=== PATIENT | female | born 1950 | race Caucasian/White ===

== ENCOUNTER 2019-04-12 12:49 | Inpatient (IN) | payer MEDICARE, OTHER ==
[~2019-04-12] VITALS: Ht 165.1 cm; Wt 229.0 kg
[2019-04-12] MEDS ORDERED: ASPirin 81 mg TAB PO ONE (13:30)
[2019-04-12 13:53] LABS: Basophils # (auto) 0.1 10 ^3/uL (0-0.2); Eosinophils # (auto) 0.1 10 ^3/uL (0-0.8); Lymphocytes # (auto) 1.1 10 ^3/uL (0.4-5.4)
[2019-04-12 13:58] LABS: Basophils % (auto) 1.1 % (0.0-2.0); Eosinophils % (auto) 1.7 % (0.0-7.0); Hematocrit 33.2 % (36.0-46.0); Lymphocytes % (auto) 12.6 % (10.0-50.0); Mean Corpuscular Volume 73.3 fL (80.0-100.0); Monocytes # (auto) 0.5 10 ^3/uL (0-1.3); Monocytes % (auto) 6.4 % (0.0-12.0); Neutrophils # (auto) 6.5 10 ^3/uL (1.6-8.6); Neutrophils % (auto) 78.2 % (37.0-80.0); Platelet Count (auto) 308 10^3/uL (140-450); Red Blood Cells 4.53 10^6/uL (4.0-5.20); Red Cell Distribution Width 17.4 % (11.8-14.3); White Blood Cell 8.4 10^3/uL (4.4-10.8)
[2019-04-12 14:12] LABS: Albumin 2.9 g/dL (3.4-5.0); Calcium 8.8 mg/dL (8.5-10.1); Magnesium 2.5 mg/dL (1.6-2.6); Potassium 3.8 mmol/L (3.5-5.1)
[2019-04-12 14:17] LABS: Bilirubin, Total 0.8 mg/dL (0.2-1.0)
[2019-04-12] MEDS ORDERED: PROMETHAZINE HCL 25 MG/ML 1ML IV PRN (16:30)
[2019-04-12] MEDS ORDERED: MORPHINE SULF INJ 2 MG/ML SYRINGE 1ML IV PRN (16:30)
[2019-04-12] MEDS ORDERED: LACTULOSE 20Gm/30ML SOLN PO PRN (16:30)
[2019-04-12] MEDS ORDERED: NITROGLYCERIN 0.4 MG SL TAB SL PRN (16:30)
[2019-04-12] MEDS ORDERED: TEMAZEPAM 15 MG CAP PO PRN (16:30)
[2019-04-12] MEDS ORDERED: DEXTROSE (50%) 50ML SYRG IV PRN (16:30)
[2019-04-12] MEDS ORDERED: traMADol HCL 50 MG TAB PO PRN (16:30)
[2019-04-12] MEDS ORDERED: ACETAMINOPHEN 500 MG TAB PO PRN (16:30)
--- NOTE | 2019-04-12 16:42 | NUR ---
WOUND CARE NOTE: [facility] BARIATRIC AIR BED ORDERED AT THIS TIME WITH TRAPEZE AND TURN ASSIST. PATIENT TO BE PLACED, PENDING DELIVERY BY CECILIA RAMIREZ.
[2019-04-12] MEDS: InsuLIN REG 1unit/0.01ml Soln (100units/ml) SC SCH ×2 (17:36→22:00)
[2019-04-12] MEDS: ACCU-CHEK COMFORT CURVE STRIP VI SCH ×2 (17:37→22:00)
[2019-04-12 17:49] LABS: Urine Bacteria FEW /hpf (None Seen); Urine Blood 2+ /uL (Negative); Urine Mucus FEW (None Seen); Urine Specific Gravity 1.021 (1.001-1.035); Urine WBC 317 /hpf (0 - 5); Urine WBC Clumps PRESENT /hpf (None Seen)
[2019-04-12 18:09] LABS: CRP High Sensitivity 3.88 mg/dL (< 0.3)
[2019-04-12] MEDS: CARVEDILOL 3.125 MG TAB PO SCH (18:12)
--- NOTE | 2019-04-12 18:32 | NUR ---
Telemetry admit from ER JUAN MANUEL FREITAS admitted to Telemetry unit after SBAR received. Patient oriented to COLE [place]AR[place], primary RN, unit, room, bed, and unit policies regarding patient care and visiting hours. Patient now on continuous telemetry monitoring, tele box # 40 and telemetry reading on arrival to unit is . Patient placed on bedside oxygen, weighed by bed scale and encouraged to call if they need something. All questions and concerns addressed, patient verbalized understanding.
--- NOTE | 2019-04-12 18:33 | NUR ---
Unable to do physical assessment due to her weight , awaiting for a bariatric bed.
[2019-04-12 18:36] VITALS: BP 185/75
[2019-04-12 18:38] LABS: Amphetamine Screen, Urine NEGATIVE (NEGATIVE); Barbiturate Scree,Urine NEGATIVE (NEGATIVE); Benzodiazephine Screen, Urine NEGATIVE (NEGATIVE); Cannabinoid Screen, Urine NEGATIVE (NEGATIVE); Cocaine Screen, Urine NEGATIVE (NEGATIVE); Opiate Scree,Urine NEGATIVE (NEGATIVE); Phencyclidine Screen, Urine NEGATIVE (NEGATIVE)
--- NOTE | 2019-04-12 18:49 | NUR ---
Dr. Mukherjee paged regarding patient's BP 185/75 HR 80, awaiting to call back.
--- NOTE | 2019-04-12 18:50 | NUR ---
Received a call from Dr. Mukherjee with new orders, noted and carried it out.
[2019-04-12] MEDS ORDERED: hydrALAZINE HCL 20 MG/ML VL IV PRN (19:00)
[2019-04-12 20:00] VITALS: BP 117/57
--- NOTE | 2019-04-12 20:00 | NUR ---
Opening Shift Note Assumed care of patient, awake and alert. Patient complains of generalized pain. Pain more profound to lower extremities. Sherry signs sales representative on sight for Big Bed delivery. Patient transferred to bed without incident. Instructed on POC and to call for assist PRN, will continue to monitor for changes Q1hr and PRN. Caregiver at bedside.
[2019-04-12] MEDS: MORPHINE SULF INJ 2 MG/ML SYRINGE 1ML IV PRN (20:12)
[2019-04-12 21:36] VITALS: BP 117/57
[2019-04-12] MEDS: SODIUM CHLOR 0.9% PF (SALINE LOCK) 10ML VIAL/SYR IV SCH (22:00)
[2019-04-12] MEDS ORDERED: FLUO40CA PO (22:55)
[2019-04-12] MEDS ORDERED: LEVO25TA6 PO (22:55)
[2019-04-12] MEDS ORDERED: GLIP5TAB12 PO (22:55)
[2019-04-12] MEDS ORDERED: INSLANTI SC (22:55)
[2019-04-12] MEDS: CLINDAMYCIN 600MG IV 50 ML IV SCH (22:57)
[2019-04-12] MEDS: ISOSORBIDE DINITRATE 10 MG TAB PO SCH (22:59)
[2019-04-12] MEDS: ATORVASTATIN 20 MG TAB PO SCH (23:00)
[2019-04-12] MEDS: FAMOTIDINE 20 MG TAB PO SCH (23:00)
[2019-04-13] VITALS (7 sets, daily range): BP systolic 110–131; BP diastolic 58–73
--- NOTE | 2019-04-13 01:00 | NUR ---
Patient awake and insisting on getting out of the bed. She was noted to be agitated, yelling and making efforts to get out of bed. At one point, patient threaten to leave hospital against medical advice due to difficulties finding comfort in the bed. Patient assisted in bed to a comfortable position. Caregiver remains at bedside.
--- NOTE | 2019-04-13 01:20 | NUR ---
20 gauge IV to right upper arm noted to be reddened and swollen. IV DC'd with cannula intact. New IV started to left forearm with 20 Gauge after second attempt
[2019-04-13] MEDS: CLINDAMYCIN 600MG IV 50 ML IV SCH ×3 (05:56→22:24)
[2019-04-13] MEDS: ISOSORBIDE DINITRATE 10 MG TAB PO SCH ×3 (06:00→22:27)
[2019-04-13] MEDS: InsuLIN REG 1unit/0.01ml Soln (100units/ml) SC SCH ×4 (06:03→22:29)
[2019-04-13] MEDS: ACCU-CHEK COMFORT CURVE STRIP VI SCH ×4 (06:11→22:32)
[2019-04-13] MEDS: SODIUM CHLOR 0.9% PF (SALINE LOCK) 10ML VIAL/SYR IV SCH ×3 (06:11→22:31)
[2019-04-13 06:12] LABS: Cholesterol 164 mg/dL (< 200); HDL Cholesterol 43 mg/dL (40-59); LDL Cholesterol 109 mg/dL (< 100); Triglycerides 87 mg/dL (< 150)
--- NOTE | 2019-04-13 06:32 | NUR ---
Patient resting comfortably. No distress noted. Caregiver remains at bedside.
--- NOTE | 2019-04-13 07:00 | NUR ---
Patient resting. No acute distress noted. Report given to AM shift RN.
--- NOTE | 2019-04-13 07:02 | NUR ---
Opening Shift Note: Assumed care of patient, awake and alert. No S/S of distress/SOB. Patient states pain in right leg, 06/15. Patient denied pain medication at this time. Patient on specialty mattress. Will turn Q2HR and as needed. Bed in lowest locked position, side rails up x 2, call light within reach. Patient instructed on POC and to call for assist PRN, will continue to monitor for changes Q1hr and PRN.
[2019-04-13] MEDS: CARVEDILOL 3.125 MG TAB PO SCH ×2 (08:46→17:45)
[2019-04-13] MEDS: cefTRIAXone 1GM/50ML D5W 50 ML IV SCH (08:47)
--- NOTE | 2019-04-13 09:13 | NUR ---
ATTEMPTED TO TURN PATIENT AT THIS TIME. PATIENT IN PAIN. PATIENT REFUSED TO BE TURNED.
[2019-04-13] MEDS ORDERED: ASPirin 81 mg TAB PO SCH (10:00)
[2019-04-13] MEDS: ENOXAPARIN SOD 40 MG/0.4 ML SYRINGE SC SCH (10:20)
[2019-04-13] MEDS: ENALAPRIL MALEATE 10 MG TAB PO SCH (10:21)
[2019-04-13] MEDS: ASPirin 81 mg TAB PO SCH (10:22)
[2019-04-13] MEDS: FUROSEMIDE 40 MG/4 ML VIAL IV SCH (10:22)
[2019-04-13] MEDS: FAMOTIDINE 20 MG TAB PO SCH ×2 (10:23→22:24)
[2019-04-13] MEDS: MORPHINE SULF INJ 2 MG/ML SYRINGE 1ML IV PRN (10:23)
[2019-04-13] MEDS: POTASSIUM CHL 20 Meq TABLET PO SCH (10:23)
--- NOTE | 2019-04-13 11:15 | NUR ---
WOUND CARE NOTE: IN TO SEE PATIENT AT THIS TIME FOR SKIN INTEGRITY. PATIENT WAS ADMITTED TO [facility] WITH DIAGNOSIS OF HEART FAILURE, CHEST PAIN, RIGHT BREAST MASTITIS. CURRENT DILEEP SCORE IS 12. PATIENT IS RESTING ON [facility] BARIATRIC AIR BED WITH TURN ASSIST. PATIENT IS MORBIDLY OBESE, WEIGHING 245 KG. SHE IS IMMOBILE D/T HER BODY HABITUS AND SOB UPON EXERTION. ATTEMPTED TO TURN PATIENT TO THE LEFT SIDE, TO NO AVAIL. PATIENT UNABLE TO TOLERATE TURNING IN THIS POSITION, CRYING OUT IN DISCOMFORT. PATIENT STATES THAT SHE HAS NOT BEEN ABLE TO TOLERATE LEFT SIDE POSITIONING FOR MANY MONTHS. PATIENT TURNED TO THE RIGHT SIDE. SACRAL/BUTTOCKS SKIN AND BILATERAL HEELS ARE PINK AND BLANCHABLE. APPLIED OPTIFOAM GENTLE SACRAL DRESSING PREVENTATIVE. PATIENT REPOSITIONED ONTO HER RIGHT SIDE, REDISTRIBUTING PRESSURE POINTS USING PILLOWS/WEDGES. SKIN/WOUND CARE PLAN IMPLEMENTED. PATIENT EDUCATED IN NEED TO REPOSITION/REDISTRIBUTE PRESSURE. PATIENT VERBALIZED UNDERSTANDING. RECOMMEND: FREQUENT TURN SCHEDULE Q 2 HOURS,PRN CONDITION PERMITS, WITH PRESSURE REDISTRIBUTION USING PILLOWS/WEDGES, AVOIDING LEFT SIDE POSITIONING, BID/PRN APPLICATION WITH MOISTURE BARRIER CREAM, OPTIFOAM GENTLE SACRAL DRESSING PREVENTATIVE, SPECIALTY BARIATRIC AIR BED, DIETARY CONSULT FOR LOW DILEEP, SKIN/WOUND CARE PLAN, CONTINUED MONITORING BY WOUND CARE TEAM.
--- NOTE | 2019-04-13 11:17 | NUR ---
WOUND CARE NURSE AT BEDSIDE. HELPED THIS NURSE ASSESS SKIN AND TURN PATIENT.
--- NOTE | 2019-04-13 11:42 | NUR ---
DR. RICK: DR. DEL REAL AT BEDSIDE. DISCUSSED POC WITH PATIENT. PATIENT VERBALLY AGREED. WILL CONTINUE TO MONITOR.
[2019-04-13] MEDS ORDERED: LORazepam 0.5 MG TAB PO PRN (13:00)
--- NOTE | 2019-04-13 13:58 | NUR ---
Patient is physically comfortable, and pain is at a tolerable level. Awaiting ECHO results. Signed: 04/13/19 at 1402 by ADDIE VALENTINE <Co-Signature Required> Co-Signed: 04/13/19 at 1402 by RANJITH REID RN RN
[2019-04-13] MEDS: FLUoxetine HCL 20 MG CAP PO SCH (14:21)
--- NOTE | 2019-04-13 14:35 | NUR ---
Attempted PT eval. Pt requesting to hold on PT eval and perform tomorrow. Will attempt again.
--- NOTE | 2019-04-13 16:42 | NUR ---
net technical architect at bedside.
--- NOTE | 2019-04-13 18:18 | NUR ---
Patient given bed bath at this time.
--- NOTE | 2019-04-13 19:28 | NUR ---
Closing note: Patient resting in bed. No S/S of pain, distress or SOB at this time. Care endorsed to NOC RN.
--- NOTE | 2019-04-13 20:00 | NUR ---
Opening Shift Note Assumed care of patient, awake and alert. No S/S of distress/SOB or pain. Instructed on POC and to call for assist PRN, will continue to monitor for changes Q1hr and PRN.
[2019-04-13] MEDS: ATORVASTATIN 20 MG TAB PO SCH (22:25)
[2019-04-14 04:30] VITALS: BP 133/72
[2019-04-14] MEDS: CLINDAMYCIN 600MG IV 50 ML IV SCH ×3 (05:34→22:16)
[2019-04-14] MEDS: ISOSORBIDE DINITRATE 10 MG TAB PO SCH ×3 (06:49→22:18)
[2019-04-14] MEDS: InsuLIN REG 1unit/0.01ml Soln (100units/ml) SC SCH ×4 (07:00→22:46)
[2019-04-14] MEDS: SODIUM CHLOR 0.9% PF (SALINE LOCK) 10ML VIAL/SYR IV SCH ×3 (07:00→22:45)
[2019-04-14] MEDS: ACCU-CHEK COMFORT CURVE STRIP VI SCH ×4 (07:00→22:45)
--- NOTE | 2019-04-14 07:35 | NUR ---
Opening Shift Note Assumed care of patient, resting with eyes closed, awoken by name. No S/S of distress/SOB or pain. Updated on POC and instructed to call for assistance as needed, patient verbalized understanding. Bed locked in lowest position, side rails up x2, call light within reach. Will continue to monitor for changes Q1hr and PRN.
[2019-04-14 09:00] VITALS: BP 133/67
[2019-04-14] MEDS: cefTRIAXone 1GM/50ML D5W 50 ML IV SCH (09:00)
[2019-04-14] MEDS: CARVEDILOL 3.125 MG TAB PO SCH ×2 (09:00→17:57)
[2019-04-14] MEDS: FUROSEMIDE 40 MG/4 ML VIAL IV SCH (10:35)
[2019-04-14] MEDS: FLUoxetine HCL 20 MG CAP PO SCH (10:35)
[2019-04-14] MEDS: POTASSIUM CHL 20 Meq TABLET PO SCH (10:35)
[2019-04-14] MEDS: ENALAPRIL MALEATE 10 MG TAB PO SCH (10:35)
[2019-04-14] MEDS: ASPirin 81 mg TAB PO SCH (10:35)
[2019-04-14] MEDS: FAMOTIDINE 20 MG TAB PO SCH ×2 (10:35→22:16)
[2019-04-14] MEDS: ENOXAPARIN SOD 40 MG/0.4 ML SYRINGE SC SCH (10:36)
[2019-04-14 13:00] VITALS: BP 125/64
--- NOTE | 2019-04-14 16:39 | NUR ---
Nutrition Assessment Notes Please refer to link for full assessment notes. Est energy needs: 6895-7777 kcals (17-20 kcal/kgAdjBW) Est protein needs: 82-102 gms/day (0.8-1.0 gm/kgAdjBW) Will continue to monitor and reassess prn. Addendum: 04/14/19 at [address] Amended: Links added.
[2019-04-14 16:59] VITALS: BP 132/64
--- NOTE | 2019-04-14 17:00 | NUR ---
IV removal IV DC'd with clean sterile technique, catheter fully intact. Pressure dressing applied to site. Patient tolerated well. NOTE: [left forearm leaking]
--- NOTE | 2019-04-14 17:10 | NUR ---
IV insertion IV access obtained, via clean sterile technique by inserting 22 gauge catheter at right forearm after 1 attempt. IV secured properly. No trauma to site. Patient tolerated well.
--- NOTE | 2019-04-14 19:30 | NUR ---
Opening Shift Note Assumed care of patient, awake and alert. No S/S of distress/SOB. Instructed on POC and to call for assist PRN, patient verbalized understanding. Turned to her side. Bed in locked position, call light within reach, will continue to monitor for changes Q1hr and PRN.
[2019-04-14 20:00] VITALS: BP 131/72
[2019-04-14 21:20] VITALS: BP 131/72
[2019-04-14] MEDS: ATORVASTATIN 20 MG TAB PO SCH (22:16)
[2019-04-15 04:59] VITALS: BP 119/60
[2019-04-15] MEDS: ISOSORBIDE DINITRATE 10 MG TAB PO SCH ×3 (06:07→22:02)
[2019-04-15] MEDS: CLINDAMYCIN 600MG IV 50 ML IV SCH ×3 (06:07→22:02)
[2019-04-15] MEDS: SODIUM CHLOR 0.9% PF (SALINE LOCK) 10ML VIAL/SYR IV SCH ×3 (06:07→22:11)
[2019-04-15] MEDS: InsuLIN REG 1unit/0.01ml Soln (100units/ml) SC SCH ×4 (06:37→22:15)
[2019-04-15] MEDS: ACCU-CHEK COMFORT CURVE STRIP VI SCH ×4 (06:37→22:08)
[2019-04-15] MEDS: CARVEDILOL 3.125 MG TAB PO SCH ×2 (08:00→18:09)
--- NOTE | 2019-04-15 08:15 | NUR ---
Opening Shift Note Assumed care of patient, awake, alert, and oriented. No S/S of distress/SOB. Instructed on POC and to call for assist PRN, patient verbalized understanding. Bed in lowest/locked position, call light within reach, will continue to monitor for changes Q1hr and PRN.
--- NOTE | 2019-04-15 08:25 | NUR ---
MD ROUNDS DR Matthias DEL REAL AT BEDSIDE DISCUSSING POC WITH PATIENT. ALL QUESTIONS/CONCERNS ANSWERED. NEW ORDERS RECEIVED/WILL CARRY OUT. WILL CONTINUE TO MONITOR
[2019-04-15 09:00] VITALS: BP 99/47
[2019-04-15] MEDS: ENOXAPARIN SOD 40 MG/0.4 ML SYRINGE SC SCH (09:50)
[2019-04-15] MEDS: cefTRIAXone 1GM/50ML D5W 50 ML IV SCH (09:50)
[2019-04-15] MEDS: FLUoxetine HCL 20 MG CAP PO SCH (09:51)
[2019-04-15] MEDS: FAMOTIDINE 20 MG TAB PO SCH ×2 (09:51→22:01)
[2019-04-15] MEDS: ASPirin 81 mg TAB PO SCH (09:51)
[2019-04-15] MEDS: POTASSIUM CHL 20 Meq TABLET PO SCH (09:51)
[2019-04-15] MEDS: FUROSEMIDE 40 MG/4 ML VIAL IV SCH (09:51)
[2019-04-15] MEDS: ENALAPRIL MALEATE 10 MG TAB PO SCH (09:52)
--- NOTE | 2019-04-15 11:42 | NUR ---
Nuisance Wildlife Trapper consult regarding resuming Home Health. Pt was previously on service with [facility] and will be resuming with this service upon discharge. Shobha contacted and information faxed to [facility] to resume upon discharge. Will notifying covering nurse and ALIS II of the above.
[2019-04-15 13:00] VITALS: BP 102/58
--- NOTE | 2019-04-15 16:09 | NUR ---
assessment Patient is a 68 year old female who is alert and oriented. Patients cognitive abilities are intact. Prior to admission patient lived home with her caregiver and functioned with assistance. Per patient she will return home to her prior living arrangements post discharge and will need transport her home. Per patient she will call her medical bus to set appointment. Per Pratibha HERNANDEZ patient will be discharged tomorrow. I informed patient to set appointment for 4pm. Patient agreed. Patient also informed me that her [facility] is getting her hospital bed. I informed RN to cancel bed order. Patients PCP is Dr Dickey. Patient has a wheelchair and 02 for home use. I informed patient she has a right to speak to a high school social studies tutor regarding all care. I informed patient she has a right to participate in any and all discharge planning. Patient does not have a POA and advanced directive. I have offered patient information on POA and advanced directives. I informed the patient the advantages and benefits of having an Advanced Directive. Patient verbalized understanding and agreed to discharge plan. Addendum: 04/15/19 at 1620 by Emy MADISON Amended: Links added.
[2019-04-15 17:06] VITALS: BP 119/59
[2019-04-15 20:00] VITALS: BP 136/71
--- NOTE | 2019-04-15 20:50 | NUR ---
Dr. Gonzales at bedside.
[2019-04-15] MEDS: ATORVASTATIN 20 MG TAB PO SCH (22:01)
[2019-04-15 22:39] VITALS: BP 136/71
[2019-04-16 05:32] VITALS: BP 133/61
[2019-04-16] MEDS: CLINDAMYCIN 600MG IV 50 ML IV SCH ×2 (06:19→13:12)
[2019-04-16] MEDS: InsuLIN REG 1unit/0.01ml Soln (100units/ml) SC SCH ×2 (06:19→12:02)
[2019-04-16] MEDS: ISOSORBIDE DINITRATE 10 MG TAB PO SCH ×2 (06:20→13:13)
[2019-04-16] MEDS: SODIUM CHLOR 0.9% PF (SALINE LOCK) 10ML VIAL/SYR IV SCH ×2 (06:20→13:12)
[2019-04-16] MEDS: ACCU-CHEK COMFORT CURVE STRIP VI SCH ×2 (06:21→12:07)
--- NOTE | 2019-04-16 07:30 | NUR ---
Opening Shift Note Assumed care of patient, awake and alert. No S/S of distress/SOB or pain. For safety, patients bed is locked, in the lowest position, with 2 side rails up and the call light with in reach. Instructed on POC and to call for assist PRN, will continue to monitor for changes in condition.
[2019-04-16 08:00] VITALS: BP 134/68
--- NOTE | 2019-04-16 08:04 | NUR ---
Patient states she has set up transport with [employer] to pick her up at 4pm.
[2019-04-16] MEDS: cefTRIAXone 1GM/50ML D5W 50 ML IV SCH (08:53)
[2019-04-16 09:00] VITALS: BP 134/68
[2019-04-16] MEDS: CARVEDILOL 3.125 MG TAB PO SCH (09:08)
[2019-04-16] MEDS: ASPirin 81 mg TAB PO SCH (10:52)
[2019-04-16] MEDS: FUROSEMIDE 40 MG/4 ML VIAL IV SCH (10:52)
[2019-04-16] MEDS: FLUoxetine HCL 20 MG CAP PO SCH (10:52)
[2019-04-16] MEDS: ENOXAPARIN SOD 40 MG/0.4 ML SYRINGE SC SCH (10:53)
[2019-04-16] MEDS: POTASSIUM CHL 20 Meq TABLET PO SCH (10:53)
[2019-04-16] MEDS: ENALAPRIL MALEATE 10 MG TAB PO SCH (10:53)
[2019-04-16] MEDS: FAMOTIDINE 20 MG TAB PO SCH (10:53)
[2019-04-16 13:26] VITALS: BP 137/59
[2019-04-16 13:44] VITALS: BP 125/58
--- NOTE | 2019-04-16 16:04 | NUR ---
Discharge instructions given as ordered. Encourage to follow up with Primary care physician as instructed by calling to make an appointment. All questions and concerns addressed. Patient verbalized understanding. Medication reconciliation form completed and copy given to patient. IV removed with catheter intact, pressure dressing applied, anderson catheter removed. Telemetry unit returned to ICU. Patient taken to vehicle via wheelchair with all personal belongings, accompanied by staff and family member. No distress noted at time of departure.
== END 2019-04-16 15:57 | disposition home or self-care (01) | DRG 193 ==
LOC: EDBD 12:49 → ER 12:49 → TELE 12:50 → TELE-CENTR 18:22
PROVIDERS: ADMIT Internal Medicine; ATTEND Family Medicine
DX: R09.1 Pleurisy (principal); I50.23 Acute on chronic systolic (congestive) heart failure; Z68.45 Body mass index [BMI] 70 or greater, adult; N39.0 Urinary tract infection, site not specified; E66.2 Morbid (severe) obesity with alveolar hypoventilation; N61.0 Mastitis without abscess; I50.9 Heart failure, unspecified; D64.9 Anemia, unspecified; R07.81 Pleurodynia; L89.109 Pressure ulcer of unspecified part of back, unspecified stage; E11.9 Type 2 diabetes mellitus without complications; J44.9 Chronic obstructive pulmonary disease, unspecified; F41.9 Anxiety disorder, unspecified; F32.9 Major depressive disorder, single episode, unspecified; E03.9 Hypothyroidism, unspecified
CPT/HCPCS: 36415; 51702; 71045; 76642; 80053; 80061; 80307; 81001; 82550; 82962; 83036; 83735; 83880; 84443; 84484; 85025; 85379; 86141; 93005; 93306; 93970; 97110; 97116; 97163; 97530; G0378; J0696; J1815; J3490

== ENCOUNTER 2020-08-01 10:35 | Inpatient (IN) | payer MEDICARE, OTHER ==
[~2020-08-01] VITALS: Ht 165.1 cm; Wt 205.0 kg
[~2020-08-01 10:35] MED LIST: FLUO40CA PO; GLIP5TAB12 PO; INSLANTI SC; LEVO25TA6 PO
[2020-08-01 10:56] LABS: Basophils # (auto) 0.1 10 ^3/uL (0-0.2); Eosinophils # (auto) 0.3 10 ^3/uL (0-0.8); Eosinophils % (auto) 2.2 % (0.0-7.0)
[2020-08-01 10:57] LABS: Basophils % (auto) 0.9 % (0.0-2.0); Hematocrit 36.9 % (36.0-46.0); Hemoglobin 11.4 g/dL (12.2-16.2); Lymphocytes % (auto) 13.9 % (10.0-50.0); Mean Corpuscular Hemoglobin 22.7 pg (28.0-32.0); Mean Corpuscular Volume 73.4 fL (80.0-100.0); Monocytes # (auto) 0.9 10 ^3/uL (0-1.3); Monocytes % (auto) 5.9 % (0.0-12.0); Neutrophils # (auto) 11.4 10 ^3/uL (1.6-8.6); Neutrophils % (auto) 77.1 % (37.0-80.0); Red Blood Cells 5.03 10^6/uL (4.0-5.20); White Blood Cell 14.8 10^3/uL (4.4-10.8)
[2020-08-01] MEDS ORDERED: SODIUM CHLORIDE 0.9% 500 ML IVB ONE (11:00)
[2020-08-01] MEDS ORDERED: SODIUM CHLORIDE 0.9% 1,000 ML IV ONE (11:00)
[2020-08-01 11:12] LABS: Albumin 2.6 g/dL (3.4-5.0); Calcium 9.3 mg/dL (8.5-10.1); Potassium 4.7 mmol/L (3.5-5.1)
[2020-08-01 11:15] LABS: BUN/Creatinine Ratio 23.9; Bilirubin, Total 0.5 mg/dL (0.2-1.0); Magnesium 2.3 mg/dL (1.6-2.6)
[2020-08-01] MEDS ORDERED: FLEET ENEMA(ADULT) 135 ML PR ONE (14:15)
[2020-08-01] MEDS ORDERED: ONDANSETRON HCL 4 MG/2 ML VIAL IV PRN (15:15)
[2020-08-01] MEDS ORDERED: NITROGLYCERIN 0.4 MG SL TAB SL PRN (15:15)
[2020-08-01] MEDS ORDERED: traMADol HCL 50 MG TAB PO PRN (15:15)
[2020-08-01] MEDS ORDERED: MORPHINE SULFATE INJECTION 2 MG/ML SYRG IV PRN ×2 (15:15)
[2020-08-01] MEDS ORDERED: ATEN25TA PO (18:28)
[2020-08-01] MEDS ORDERED: INSUINJ37 SC (18:28)
[2020-08-01] MEDS: DOCUSATE SOD 100 MG CAP PO SCH (21:58)
[2020-08-01] MEDS: metroNIDAZOLE 500MG/100ML 100 ML IV SCH (21:58)
[2020-08-01 22:00] VITALS: BP 98/49
[2020-08-01] MEDS: ATENOLOL 25 MG TAB PO SCH (22:00)
[2020-08-01] MEDS: ACETAMINOPHEN 500 MG TAB PO PRN (22:02)
[2020-08-02 05:00] VITALS: BP 112/44
[2020-08-02 06:41] LABS: Urine Bacteria FEW /hpf (None Seen); Urine Blood 1+ /uL (Negative); Urine Budding Yeast FEW /hpf (None Seen); Urine Mucus FEW (None Seen); Urine Specific Gravity 1.018 (1.001-1.035); Urine WBC 2531 /hpf (0 - 5); Urine WBC Clumps PRESENT /hpf (None Seen)
[2020-08-02] MEDS: metroNIDAZOLE 500MG/100ML 100 ML IV SCH ×3 (06:51→21:57)
[2020-08-02] MEDS: LEVOTHYROXINE SODIUM 25 MCG TAB PO SCH (06:51)
[2020-08-02 07:03] LABS: Basophils # (auto) 0 10 ^3/uL (0-0.2); Basophils % (auto) 0.3 % (0.0-2.0); Eosinophils # (auto) 0.4 10 ^3/uL (0-0.8); Eosinophils % (auto) 3.1 % (0.0-7.0); Hematocrit 35.7 % (36.0-46.0); Hemoglobin 11.4 g/dL (12.2-16.2); Lymphocytes # (auto) 2.2 10 ^3/uL (0.4-5.4); Lymphocytes % (auto) 19.2 % (10.0-50.0); Mean Corpuscular Hemoglobin 23.7 pg (28.0-32.0); Monocytes # (auto) 0.8 10 ^3/uL (0-1.3); Monocytes % (auto) 7.5 % (0.0-12.0); Neutrophils # (auto) 7.8 10 ^3/uL (1.6-8.6); Neutrophils % (auto) 69.9 % (37.0-80.0); Nucleated Red Blood Cells % 0.1 %; Red Blood Cells 4.83 10^6/uL (4.0-5.20); White Blood Cell 11.2 10^3/uL (4.4-10.8)
[2020-08-02 07:34] LABS: Albumin 2.4 g/dL (3.4-5.0); Calcium 9.3 mg/dL (8.5-10.1); Potassium 4.3 mmol/L (3.5-5.1)
[2020-08-02 07:37] LABS: Bilirubin, Total 0.8 mg/dL (0.2-1.0); Total Protein 6.6 g/dL (6.4-8.2)
[2020-08-02 08:00] VITALS: BP 115/63
[2020-08-02 08:35] VITALS: BP 115/63
[2020-08-02] MEDS: INSULIN LANTUS (GLARGINE) 1 /0.01ml (100units/ml) SC SCH (08:38)
[2020-08-02] MEDS: DOCUSATE SOD 100 MG CAP PO SCH ×2 (08:40→21:10)
[2020-08-02] MEDS: ASPirin 81 mg TAB PO SCH (08:40)
[2020-08-02] MEDS: ATENOLOL 25 MG TAB PO SCH ×2 (08:41→22:00)
[2020-08-02] MEDS: FAMOTIDINE 20 MG TAB PO SCH (08:41)
[2020-08-02] MEDS ORDERED: ENOXAPARIN SOD 40 MG/0.4 ML SYRINGE SC SCH (10:00)
[2020-08-02] MEDS: levoFLOXacin 500MG 100 ML IV SCH (10:00)
[2020-08-02] MEDS ORDERED: DIGOXIN 0.25 MG TAB PO ONE (11:00)
[2020-08-02] MEDS: Glucerna Carbsteady SHAKE Vanilla 8oz PO SCH ×2 (11:25→18:15)
[2020-08-02 13:00] VITALS: BP 95/58
[2020-08-02] MEDS: APIXABAN 5 MG TAB PO SCH ×2 (14:56→21:10)
[2020-08-02] MEDS: DIGOXIN (250MCG/ML) 2 ML AMPULE IV SCH ×2 (14:59→21:09)
[2020-08-02] MEDS: ACETAMINOPHEN 500 MG TAB PO PRN (21:11)
[2020-08-02 22:00] VITALS: BP 99/130
[2020-08-03 05:00] VITALS: BP 116/60
[2020-08-03 05:52] LABS: Basophils # (auto) 0.1 10 ^3/uL (0-0.2); Eosinophils # (auto) 0.3 10 ^3/uL (0-0.8); Lymphocytes # (auto) 1.8 10 ^3/uL (0.4-5.4); Monocytes # (auto) 0.8 10 ^3/uL (0-1.3)
[2020-08-03 05:55] LABS: Basophils % (auto) 0.8 % (0.0-2.0); Eosinophils % (auto) 3.3 % (0.0-7.0); Hematocrit 32.9 % (36.0-46.0); Hemoglobin 10.5 g/dL (12.2-16.2); Lymphocytes % (auto) 18.6 % (10.0-50.0); Mean Corpuscular Hemoglobin 23.2 pg (28.0-32.0); Mean Corpuscular Hgb Conc. 31.8 g/dL (32.0-36.0); Monocytes % (auto) 8.3 % (0.0-12.0); Neutrophils # (auto) 6.8 10 ^3/uL (1.6-8.6); Nucleated Red Blood Cells % 0.1 %; Red Blood Cells 4.51 10^6/uL (4.0-5.20); Red Cell Distribution Width 17.9 % (11.8-14.3); White Blood Cell 9.9 10^3/uL (4.4-10.8)
[2020-08-03] MEDS: metroNIDAZOLE 500MG/100ML 100 ML IV SCH ×2 (06:11→13:33)
[2020-08-03] MEDS: LEVOTHYROXINE SODIUM 25 MCG TAB PO SCH (06:12)
[2020-08-03 06:13] LABS: Chloride 105 mmol/L (98-107); Potassium 4.7 mmol/L (3.5-5.1); Sodium 138 mmol/L (136-145)
[2020-08-03 06:30] LABS: Alanine Aminotransferase 14 U/L (13-56); Albumin 2.2 g/dL (3.4-5.0); Alkaline Phosphatase 97 U/L (45-117); Anion Gap 4 (5-15); Aspartate Aminotransferase 12 U/L (15-37); BUN/Creatinine Ratio 25.3; Bilirubin, Total 0.5 mg/dL (0.2-1.0); Blood Urea Nitrogen 21 mg/dL (7-18); Calcium 8.5 mg/dL (8.5-10.1); Carbon Dioxide 29 mmol/L (21-32); GFR African American 88 mL/min; GFR Non-African American 73 mL/min; Glucose 192 mg/dL (74-106); Total Protein 6.3 g/dL (6.4-8.2)
[2020-08-03 09:00] VITALS: BP 120/62
[2020-08-03] MEDS: Glucerna Carbsteady SHAKE Vanilla 8oz PO SCH ×3 (09:24→18:46)
[2020-08-03] MEDS: ASPirin 81 mg TAB PO SCH (10:25)
[2020-08-03] MEDS: DOCUSATE SOD 100 MG CAP PO SCH ×2 (10:25→21:18)
[2020-08-03] MEDS: levoFLOXacin 500MG 100 ML IV SCH (10:25)
[2020-08-03] MEDS: FAMOTIDINE 20 MG TAB PO SCH (10:25)
[2020-08-03] MEDS: APIXABAN 5 MG TAB PO SCH ×2 (10:26→21:18)
[2020-08-03] MEDS: ATENOLOL 25 MG TAB PO SCH (10:26)
[2020-08-03] MEDS: DIGOXIN 0.25 MG TAB PO SCH (10:27)
[2020-08-03] MEDS: INSULIN LANTUS (GLARGINE) 1 /0.01ml (100units/ml) SC SCH (10:34)
[2020-08-03 13:00] VITALS: BP 119/55
[2020-08-03] MEDS: ACETAMINOPHEN 500 MG TAB PO PRN (15:40)
[2020-08-03 16:53] VITALS: BP 122/60
[2020-08-03] MEDS: METOPROLOL TARTRATE 25 MG TAB PO SCH ×2 (21:46→21:49)
[2020-08-03 22:00] VITALS: BP 108/54
[2020-08-04 05:00] VITALS: BP 126/53
[2020-08-04] MEDS: LEVOTHYROXINE SODIUM 25 MCG TAB PO SCH (06:18)
[2020-08-04 06:28] LABS: Lymphocytes # (auto) 1.2 10 ^3/uL (0.4-5.4); Monocytes # (auto) 0.7 10 ^3/uL (0-1.3)
[2020-08-04 06:32] LABS: Basophils # (auto) 0.1 10 ^3/uL (0-0.2); Basophils % (auto) 0.7 % (0.0-2.0); Eosinophils # (auto) 0.3 10 ^3/uL (0-0.8); Eosinophils % (auto) 3.4 % (0.0-7.0); Hematocrit 30.6 % (36.0-46.0); Lymphocytes % (auto) 16.4 % (10.0-50.0); Mean Corpuscular Hemoglobin 24.1 pg (28.0-32.0); Mean Corpuscular Hgb Conc. 32.7 g/dL (32.0-36.0); Mean Corpuscular Volume 73.6 fL (80.0-100.0); Monocytes % (auto) 8.8 % (0.0-12.0); Neutrophils # (auto) 5.4 10 ^3/uL (1.6-8.6); Neutrophils % (auto) 70.7 % (37.0-80.0); Red Blood Cells 4.15 10^6/uL (4.0-5.20); Red Cell Distribution Width 17.7 % (11.8-14.3); White Blood Cell 7.6 10^3/uL (4.4-10.8)
[2020-08-04 06:41] LABS: Albumin 2.1 g/dL (3.4-5.0); Calcium 8.6 mg/dL (8.5-10.1); Magnesium 2.3 mg/dL (1.6-2.6); Potassium 4.7 mmol/L (3.5-5.1)
[2020-08-04 06:47] LABS: Bilirubin, Total 0.3 mg/dL (0.2-1.0); Total Protein 5.9 g/dL (6.4-8.2)
[2020-08-04 09:00] VITALS: BP 106/59
[2020-08-04] MEDS: levoFLOXacin 500MG 100 ML IV SCH (09:27)
[2020-08-04] MEDS: FAMOTIDINE 20 MG TAB PO SCH (09:27)
[2020-08-04] MEDS: ASPirin 81 mg TAB PO SCH (09:27)
[2020-08-04] MEDS: APIXABAN 5 MG TAB PO SCH ×2 (09:28→22:58)
[2020-08-04] MEDS: DIGOXIN 0.25 MG TAB PO SCH (09:28)
[2020-08-04] MEDS: Glucerna Carbsteady SHAKE Vanilla 8oz PO SCH ×3 (09:28→18:56)
[2020-08-04] MEDS: METOPROLOL TARTRATE 25 MG TAB PO SCH ×2 (09:28→22:59)
[2020-08-04] MEDS: DOCUSATE SOD 100 MG CAP PO SCH ×2 (09:28→22:57)
[2020-08-04] MEDS: INSULIN LANTUS (GLARGINE) 1 /0.01ml (100units/ml) SC SCH (09:51)
[2020-08-04 12:30] VITALS: BP 106/60
[2020-08-04 13:00] VITALS: BP 106/60
[2020-08-04] MEDS ORDERED: FLUCONAZOLE 200MG/100ML 100 ML IV ONE (14:45)
[2020-08-04] MEDS ORDERED: APIX5TAB PO (14:47)
[2020-08-04] MEDS ORDERED: FLUC200T35 PO (14:47)
[2020-08-04] MEDS ORDERED: DIGO0.12 PO (14:47)
[2020-08-04 17:00] VITALS: BP 135/66
[2020-08-04] MEDS ORDERED: LACTULOSE 20Gm/30ML SOLN PO PRN (17:30)
[2020-08-04] MEDS ORDERED: LACTULOSE 20Gm/30ML SOLN PO ONE (17:30)
[2020-08-04 22:08] VITALS: BP 147/58
[2020-08-05 05:19] VITALS: BP 127/58
[2020-08-05] MEDS: LEVOTHYROXINE SODIUM 25 MCG TAB PO SCH (06:09)
[2020-08-05] MEDS: Glucerna Carbsteady SHAKE Vanilla 8oz PO SCH ×3 (08:00→18:00)
[2020-08-05 09:00] VITALS: BP 97/47
[2020-08-05] MEDS: ASPirin 81 mg TAB PO SCH (09:32)
[2020-08-05] MEDS: DOCUSATE SOD 100 MG CAP PO SCH (09:33)
[2020-08-05] MEDS: DIGOXIN 0.25 MG TAB PO SCH (09:36)
[2020-08-05] MEDS: APIXABAN 5 MG TAB PO SCH (09:37)
[2020-08-05] MEDS: FAMOTIDINE 20 MG TAB PO SCH (09:37)
[2020-08-05] MEDS: METOPROLOL TARTRATE 25 MG TAB PO SCH (09:41)
[2020-08-05] MEDS: INSULIN LANTUS (GLARGINE) 1 /0.01ml (100units/ml) SC SCH (10:00)
[2020-08-05 13:00] VITALS: BP 120/66
[2020-08-05 17:00] VITALS: BP 122/57
== END 2020-08-05 19:31 | disposition home health service (06) | DRG 391 ==
LOC: ER 10:35 → EDBD 10:35 → TELE 15:17 → TELE-WESTW 18:56
PROVIDERS: ADMIT Nurse Practitioner Acute Care; ATTEND Internal Medicine
DX: K59.00 Constipation, unspecified (principal); I50.43 Acute on chronic combined systolic (congestive) and diastolic (congestive) heart failure; I48.20 Chronic atrial fibrillation, unspecified; E66.2 Morbid (severe) obesity with alveolar hypoventilation; E44.0 Moderate protein-calorie malnutrition; Z68.45 Body mass index [BMI] 70 or greater, adult; D68.69 Other thrombophilia; B37.49 Other urogenital candidiasis; R65.10 Systemic inflammatory response syndrome (SIRS) of non-infectious origin without acute organ dysfunction; Z20.822 Contact with and (suspected) exposure to COVID-19; F32.9 Major depressive disorder, single episode, unspecified; D63.8 Anemia in other chronic diseases classified elsewhere; E03.9 Hypothyroidism, unspecified; I95.9 Hypotension, unspecified; E11.21 Type 2 diabetes mellitus with diabetic nephropathy; E11.65 Type 2 diabetes mellitus with hyperglycemia; I11.0 Hypertensive heart disease with heart failure; J44.9 Chronic obstructive pulmonary disease, unspecified; Z79.4 Long term (current) use of insulin; Z79.899 Other long term (current) drug therapy; Z82.49 Family history of ischemic heart disease and other diseases of the circulatory system; Z74.01 Bed confinement status; Z83.3 Family history of diabetes mellitus; Z87.440 Personal history of urinary (tract) infections; Z99.81 Dependence on supplemental oxygen; Z80.9 Family history of malignant neoplasm, unspecified
CPT/HCPCS: 36415; 71045; 74018; 76830; 80053; 80061; 81001; 82962; 83036; 83690; 83735; 83880; 84443; 84484; 85025; 85049; 87045; 87086; 87088; 87426; 87427; 93005; 93306; 93970; 96360; 96361; 97110; 97163; 97530; G0378; J1450; J1815; J1956; J3490

== ENCOUNTER 2021-01-04 06:17 | Emergency (ER) | payer MEDICARE, OTHER ==
[~2021-01-04] VITALS: Ht 165.1 cm; Wt 181.4 kg
[~2021-01-04 06:17] MED LIST changes: +APIX5TAB PO; +ATEN25TA PO; +DIGO0.12 PO; +FLUC200T35 PO; +INSUINJ37 SC
[2021-01-04] MEDS ORDERED: IPRATROPIUM BROM 0.5 MG/2.5ML INH SOL NEB ONE (06:45)
[2021-01-04] MEDS ORDERED: ALBUTEROL SULF 2.5 MG/0.5ML(0.5%) NEB SOLN NEB ONE (06:45)
[2021-01-04] MEDS ORDERED: methylPREDNISolone SOD SUCC 125 MG/2 ML VL IV ONE (06:45)
[2021-01-04] MEDS ORDERED: FUROSEMIDE 40 MG/4 ML VIAL IV ONE (07:45)
[2021-01-04 10:10] LABS: Basophils # (auto) 0 10 ^3/uL (0-0.2); Basophils % (auto) 0.5 % (0.0-2.0); Eosinophils # (auto) 0.1 10 ^3/uL (0-0.8); Hemoglobin 8.4 g/dL (12.2-16.2); Lymphocytes # (auto) 0.8 10 ^3/uL (0.4-5.4); Lymphocytes % (auto) 8.1 % (10.0-50.0); Mean Corpuscular Hemoglobin 19.9 pg (28.0-32.0); Mean Corpuscular Volume 70.9 fL (80.0-100.0); Monocytes # (auto) 0.4 10 ^3/uL (0-1.3); Monocytes % (auto) 4.1 % (0.0-12.0); Neutrophils % (auto) 86.3 % (37.0-80.0); Nucleated Red Blood Cells % 0.4 %; Red Blood Cells 4.23 10^6/uL (4.0-5.20); Red Cell Distribution Width 18.8 % (11.8-14.3); White Blood Cell 10.5 10^3/uL (4.4-10.8)
[2021-01-04 10:27] LABS: Potassium 4.6 mmol/L (3.5-5.1)
[2021-01-04 10:33] LABS: Albumin 2.5 g/dL (3.4-5.0); BUN/Creatinine Ratio 39.7; Bilirubin, Total 0.7 mg/dL (0.2-1.0); Calcium 9.1 mg/dL (8.5-10.1); Total Protein 7.2 g/dL (6.4-8.2)
[2021-01-04 19:36] VITALS: BP 135/53
== END 2021-01-04 21:00 | disposition home or self-care (01) ==
LOC: EDUNIT# 06:17 → EDBD 06:17 → ER 06:17
DX: J44.1 Chronic obstructive pulmonary disease with (acute) exacerbation (principal); I48.20 Chronic atrial fibrillation, unspecified; I11.0 Hypertensive heart disease with heart failure; I50.9 Heart failure, unspecified; E11.9 Type 2 diabetes mellitus without complications; E03.9 Hypothyroidism, unspecified
CPT/HCPCS: 36415; 71045; 80053; 83880; 84484; 85025; 93005; 93970; 94640; 96374; 96375; 99291; J1940; J2930; J7644